=== PATIENT | male | born 1960 | race Caucasian/White ===

== ENCOUNTER 2024-11-17 09:42 | Inpatient (IN) | payer OTHER ==
[~2024-11-17] VITALS: Ht 167.6 cm; Wt 66.9 kg
[~2024-11-17 09:42] MED LIST: Amaryl PO; CEPH500 PO; HYDACE5 PO
[2024-11-17 11:39] LABS: BASOPHILS ABSOLUTE AUTO 0.08 K/mm3 (0.00-0.23); BASOPHILS PERCENT AUTO 0 % (0-2); EOSINOPHILS ABSOLUTE AUTO 0.27 K/mm3 (0.00-0.68); EOSINOPHILS PERCENT AUTO 1 % (0-6); Hematocrit 35.8 % (37.0-53.0); Hemoglobin 11.8 g/dL (13.5-17.5); IMMATURE GRAN ABSOLUTE AUTO 0.18 K/mm3 (0.00-0.10); IMMATURE GRAN PERCENT AUTO 1 % (0-1); LYMPHOCYTES ABSOLUTE AUTO 2.33 K/mm3 (0.84-5.20); LYMPHOCYTES PERCENT AUTO 11 % (21-46); MONOCYTES ABSOLUTE AUTO 1.06 K/mm3 (0.16-1.47); MONOCYTES PERCENT AUTO 5 % (4-13); Mean Corpuscular HGB 28.6 pg (26.0-34.0); Mean Corpuscular Volume 87 fL (80-100); NEUTROPHILS ABSOLUTE AUTO 16.66 K/mm3 (1.96-9.15); NEUTROPHILS PERCENT AUTO 81 % (41-73); Platelet Count 442 K/mm3 (150-400); RDW Coefficient Variation 12.6 % (11.7-14.2); RDW Standard Deviation 40.2 fL (35.1-46.3); Red Blood Cell Count 4.12 M/mm3 (4.30-5.90); White Blood Cell Count 20.58 K/mm3 (4.00-11.30)
[2024-11-17 11:59] LABS: Albumin, Blood 2.6 g/dL (3.4-5.0); Albumin/Globulin Ratio 0.4 (0.8-1.8); Bilirubin, Total 0.5 mg/dL (0.1-1.0); Calcium, Blood 9.6 mg/dL (8.5-10.1); Creatinine, Blood 0.86 mg/dL (0.60-1.20); Globulin, Blood 6.6 g/dL (2.2-4.0); Potassium, Blood 4.6 mmol/L (3.5-5.5); Total Protein, Blood 9.2 g/dL (6.4-8.2)
[2024-11-17] MEDS ORDERED: CefTRIAXone Sodium 2,000 MG in NS 100 ML IV ONE (12:30)
[2024-11-17] MEDS ORDERED: NS 1,000 ML IV SCH ×2 (12:30→14:30)
[2024-11-17] MEDS ORDERED: Vancomycin HCL 2,000 MG in NS 500 ML IV ONE (12:40)
[2024-11-17] MEDS ORDERED: FLU VACC TS2024-25(6MOS UP)/PF 45 MCG/0.5 ML SYRINGE IM SCH (14:30)
[2024-11-17] MEDS ORDERED: Prochlorperazine Edisylate 10 mg Vial IV PRN (14:30)
[2024-11-17 15:19] LABS: Percent Saturation 11.1 % (20.0-50.0)
[2024-11-17] MEDS ORDERED: Acetaminophen 325 MG TABLET PO PRN (15:25)
[2024-11-17] MEDS ORDERED: OxyCODONE HCL 5 MG TAB PO PRN (15:25)
[2024-11-17] MEDS ORDERED: Insulin Human Lispro 100 Units/ML 3ML Syringe SC SCH (16:30)
[2024-11-17] MEDS ORDERED: CeFAZolin Sodium 2,000 MG in NS 100 ML IV SCH (18:00)
--- NOTE | 2024-11-17 20:10 | NUR ---
NEW ADMIT PATIENT ADMITTED RM 354 VIA WHEELCHAIR AND 1P TRANSPORT. TRANSFERRED TO BED WITH MINIMAL ASSISTANCE. PATIENT ARRIVED TO ROOM WITH 1 PERSONAL BELONGINGS BAG AND PHONE. PATIENT HAS PERSONAL WALKER IN ROOM. PATIENT ORIENTED TO ROOM AND THIS RN TO ASSUME CARE.
[2024-11-17 20:21] VITALS: BP 146/77
[2024-11-17] MEDS ORDERED: NOVOLIN 70100 UNIT/4 (20:38)
[2024-11-17] MEDS ORDERED: Insulin Glargine-Yfgn 100 Unit/mL 3 ML SYR SC SCH (21:00)
[2024-11-18 04:14] VITALS: BP 123/71
[2024-11-18 05:15] LABS: BASOPHILS ABSOLUTE AUTO 0.05 K/mm3 (0.00-0.23); BASOPHILS PERCENT AUTO 0 % (0-2); EOSINOPHILS PERCENT AUTO 2 % (0-6); Hematocrit 30.5 % (37.0-53.0); IMMATURE GRAN ABSOLUTE AUTO 0.07 K/mm3 (0.00-0.10); IMMATURE GRAN PERCENT AUTO 1 % (0-1); LYMPHOCYTES ABSOLUTE AUTO 1.68 K/mm3 (0.84-5.20); LYMPHOCYTES PERCENT AUTO 14 % (21-46); MONOCYTES ABSOLUTE AUTO 0.73 K/mm3 (0.16-1.47); MONOCYTES PERCENT AUTO 6 % (4-13); Mean Corpuscular HGB 28.4 pg (26.0-34.0); Mean Corpuscular HGB Conc 32.8 g/dL (31.5-36.5); Mean Corpuscular Volume 87 fL (80-100); Mean Platelet Volume 9.9 fL (9.1-12.4); NEUTROPHILS ABSOLUTE AUTO 9.47 K/mm3 (1.96-9.15); NEUTROPHILS PERCENT AUTO 77 % (41-73); Platelet Count 372 K/mm3 (150-400); RDW Coefficient Variation 12.6 % (11.7-14.2); RDW Standard Deviation 40.1 fL (35.1-46.3); Red Blood Cell Count 3.52 M/mm3 (4.30-5.90)
[2024-11-18 05:42] LABS: Bun/Creatinine Ratio 27.1 (12.0-20.0); Calcium, Blood 9.1 mg/dL (8.5-10.1); Creatinine, Blood 0.63 mg/dL (0.60-1.20); Magnesium, Blood 1.9 mg/dL (1.6-2.4); Potassium, Blood 3.8 mmol/L (3.5-5.5)
[2024-11-18 07:26] VITALS: BP 120/59
[2024-11-18] MEDS ORDERED: Enoxaparin 40 MG/0.4 ML SYR SC SCH (09:00)
[2024-11-18] MEDS ORDERED: Insulin Human Lispro 100 Units/ML 3ML Syringe SC SCH (11:30)
[2024-11-18 14:43] VITALS: BP 122/64
--- NOTE | 2024-11-18 18:33 | NUR ---
PT ALERT AND ORIENTED X4, VSS, RA, NON-TELE. IV ABX CONTINUED FOR CELLULITIS. PT SBA WITH HOME WALKER WHEN OOB. PAIN CONTROLLED WITH PRN OXYCODONE AND TYLENOL. PT PLEASANT AND COOPERATIVE WITH CARE, CALLS APPROPRIATLY, BED IN LOWEST POSITION, CALL LIGHT IN REACH.
[2024-11-18 19:09] VITALS: BP 122/67
[2024-11-18] MEDS ORDERED: Insulin Glargine-Yfgn 100 Unit/mL 3 ML SYR SC SCH (21:00)
[2024-11-19 03:45] VITALS: BP 134/66
--- NOTE | 2024-11-19 03:56 | NUR ---
SHIFT SUMMARY ADMITTED FOR LEFT HEEL CELLULITIS. FULL CODE. IV ANTIB RX ARE SCHEDULED. IV FLUID IS INFUSING. ACHS CBG'S - HIGH SS. ADA DIET. ON RA. A&O X4. INDEPENDENT IN ROOM W/FWW. PAIN AND NAUSEA MEDICATION GIVEN THIS SHIFT. PALLIATIVE CARE IS CONSULTED.
[2024-11-19 05:09] LABS: BASOPHILS ABSOLUTE AUTO 0.06 K/mm3 (0.00-0.23); BASOPHILS PERCENT AUTO 1 % (0-2); EOSINOPHILS ABSOLUTE AUTO 0.26 K/mm3 (0.00-0.68); EOSINOPHILS PERCENT AUTO 2 % (0-6); Hemoglobin 9.9 g/dL (13.5-17.5); IMMATURE GRAN ABSOLUTE AUTO 0.06 K/mm3 (0.00-0.10); IMMATURE GRAN PERCENT AUTO 1 % (0-1); LYMPHOCYTES ABSOLUTE AUTO 1.38 K/mm3 (0.84-5.20); LYMPHOCYTES PERCENT AUTO 11 % (21-46); MONOCYTES ABSOLUTE AUTO 0.76 K/mm3 (0.16-1.47); MONOCYTES PERCENT AUTO 6 % (4-13); Mean Corpuscular HGB 28.4 pg (26.0-34.0); Mean Corpuscular Volume 86 fL (80-100); Mean Platelet Volume 9.9 fL (9.1-12.4); NEUTROPHILS PERCENT AUTO 80 % (41-73); Platelet Count 390 K/mm3 (150-400); RDW Coefficient Variation 12.5 % (11.7-14.2); RDW Standard Deviation 39.7 fL (35.1-46.3); Red Blood Cell Count 3.49 M/mm3 (4.30-5.90); White Blood Cell Count 12.62 K/mm3 (4.00-11.30)
[2024-11-19 05:36] LABS: Bun/Creatinine Ratio 25.6 (12.0-20.0); Calcium, Blood 8.7 mg/dL (8.5-10.1); Creatinine, Blood 0.51 mg/dL (0.60-1.20); Potassium, Blood 3.8 mmol/L (3.5-5.5)
[2024-11-19 07:16] VITALS: BP 130/69
[2024-11-19 08:59] LABS: Percent Saturation 12.6 % (20.0-50.0)
[2024-11-19 15:09] VITALS: BP 115/56
[2024-11-19] MEDS ORDERED: Iron Dextran 975 MG in NS 250 ML IV ONE (15:30)
[2024-11-19] MEDS ORDERED: Iron Dextran 50 MG / ML 2ML Vial IV ONE (15:30)
[2024-11-19 16:54] VITALS: BP 118/54
--- NOTE | 2024-11-19 17:16 | NUR ---
SHIFT SUMMARY: PATIENT A/OX4, CALM, PLEASANT AND COOPERATIVE c CARE. PATIENT MEDICATED FOR PAIN TO HIS L FOOT PER CHUY preston GOOD EFFECT. PATIENT LAB FE LEVEL RESULT WAS 23. PATIENT UPDATED c THIS RESULT AND AGREED TO RECEIVED FE INFUSION. PATIENT ADMINISTERED c TEST DOSE FE DEXTRAN AT 1601; ASSESS AND MONITORED ANY SIDE EFFECTS OR REACTION TO MEDICATION. PATIENT DENIES CP/PRESSURE, SOB, N/V, DIZZINESS AND ITCHINESS. NOTIFIED PHARMACIST, HEATH preston THIS FINDINGS. PER HEATH SHE WILL SENT THE DOSE OF FE DEXTRAN. PATIENT RECEIVED SCHEDULED IV ABX. VITAL SIGNS REVIEWED. PATIENT HAS NO COMPLAINTS OR DENIES NEW CONCERNED THIS SHIFT. PATIENT REFUSED NASAL MRSA SWAB TESTING, DR. LONDONO IS AWARE OF THIS ISSUE. CALL LIGHT IN REACH.
[2024-11-19 19:23] VITALS: BP 126/72
[2024-11-19] MEDS ORDERED: Insulin Glargine-Yfgn 100 Unit/mL 3 ML SYR SC SCH (21:00)
[2024-11-20 04:03] VITALS: BP 112/60
--- NOTE | 2024-11-20 05:12 | NUR ---
SHIFT SUMMARY PATIENT AOX4. PATIENT CALM AND COOPERATIVE WITH CARE. PATIENT IS ABLE TO MAKE HIS NEEDS KNOWN. PATIENT HAS LEFT FOOT WOUND, AND PAIN IS MANAGED WITH REST, REPOSITIONING, AND PRN MEDICATIONS PER MD ORDER. PATIENT IS CONTINENT X2. HE USES A WALKER WITH MINIMAL ASSIST. NO ACUTE EVENTS OVERNIGHT.
[2024-11-20 07:34] VITALS: BP 117/69
[2024-11-20 10:17] LABS: BASOPHILS ABSOLUTE AUTO 0.04 K/mm3 (0.00-0.23); BASOPHILS PERCENT AUTO 0 % (0-2); EOSINOPHILS ABSOLUTE AUTO 0.07 K/mm3 (0.00-0.68); EOSINOPHILS PERCENT AUTO 1 % (0-6); Hemoglobin 9.7 g/dL (13.5-17.5); IMMATURE GRAN ABSOLUTE AUTO 0.04 K/mm3 (0.00-0.10); IMMATURE GRAN PERCENT AUTO 0 % (0-1); LYMPHOCYTES PERCENT AUTO 10 % (21-46); MONOCYTES ABSOLUTE AUTO 0.63 K/mm3 (0.16-1.47); MONOCYTES PERCENT AUTO 5 % (4-13); Mean Corpuscular HGB 28.2 pg (26.0-34.0); Mean Corpuscular HGB Conc 32.3 g/dL (31.5-36.5); Mean Corpuscular Volume 87 fL (80-100); Mean Platelet Volume 9.7 fL (9.1-12.4); NEUTROPHILS ABSOLUTE AUTO 10.92 K/mm3 (1.96-9.15); NEUTROPHILS PERCENT AUTO 84 % (41-73); Platelet Count 425 K/mm3 (150-400); RDW Coefficient Variation 12.5 % (11.7-14.2); RDW Standard Deviation 39.9 fL (35.1-46.3); Red Blood Cell Count 3.44 M/mm3 (4.30-5.90)
[2024-11-20 10:38] LABS: Bun/Creatinine Ratio 18.3 (12.0-20.0); Calcium, Blood 8.9 mg/dL (8.5-10.1); Creatinine, Blood 0.49 mg/dL (0.60-1.20); Potassium, Blood 3.5 mmol/L (3.5-5.5)
--- NOTE | 2024-11-20 17:59 | NUR ---
DAY SHIFT SUMMARY: NO ACUTE EVENTS TO REPORT THIS SHIFT. PT A&O X4; CALM AND COOPERATIVE WITH CARE. MEDICATED FOR L FOOT PAIN PER EMAR. IV ABX CONTINUING. REPORT GIVEN TO TINO ALVARADO.
[2024-11-20 19:13] VITALS: BP 120/89
[2024-11-21 03:01] VITALS: BP 130/67
[2024-11-21 07:09] VITALS: BP 122/71
[2024-11-21] MEDS ORDERED: CEPH500 PO (13:11)
[2024-11-21] MEDS ORDERED: INSULANPEN SC (13:11)
[2024-11-21] MEDS ORDERED: HUMALOG KW100 UNIT/1 SC (13:13)
--- NOTE | 2024-11-21 15:14 | NUR ---
DISCHARGE NOTE PT A&OX4. PT ADMITTED DUE TO SEPSIS WITH L LOWER ANKLE CELLULITIS. PT REPORTS PAIN. PAIN MANAGED PER EMAR W/COMPAZINE DUE COMPLAINT OF NAUSEA. PT INDEPENDEDNT WITH WALKER IN ROOM. PT EATS ADEQUATE. PT LEFT GLASSESS. PATIENT NOTIFIED. PT MEDS FAXED TO PREFERED PHARMACY. PT VOIDS AND EATS ADEQUAE. PT EDUCATED ON DISCHARGE INSTRUCTIONS AND MEDS. PT TAKES MEDS WHOLE WITH WATER. VSS. PT HAS APPOINTMENT WITH PCP AT [facility]. PT RIDE CAME. PT DECLINED ESCORT AND LEFT WITH VISITOR TO PERSONAL VEHICLE. IV WAS D/C.
== END 2024-11-21 15:12 | disposition home or self-care (01) | DRG 872 ==
LOC: ER 09:42 → ERHOLD 14:28 → MEDS 14:28
PROVIDERS: Physician Assistant; ADMIT Internal Medicine
DX: A41.9 Sepsis, unspecified organism (principal); L03.116 Cellulitis of left lower limb; E11.621 Type 2 diabetes mellitus with foot ulcer; L97.529 Non-pressure chronic ulcer of other part of left foot with unspecified severity; D50.9 Iron deficiency anemia, unspecified; E11.65 Type 2 diabetes mellitus with hyperglycemia; S92.332A Displaced fracture of third metatarsal bone, left foot, initial encounter for closed fracture; X58.XXXA Exposure to other specified factors, initial encounter
CPT/HCPCS: 36415; 73620; 73700; 80048; 80053; 82607; 82728; 82746; 82947; 83036; 83540; 83550; 83605; 83735; 85025; 85651; 86140; 87040; 93005; 93010; 93922; 96365; 96375; 99285-25; A9270; J0690; J0696; J0780; J1650; J1750; J1815; J3370; J7030; J7040; J7050

== ENCOUNTER 2024-12-05 12:11 | Emergency (ER) | payer OTHER ==
[~2024-12-05] VITALS: Ht 165.1 cm; Wt 63.5 kg
[~2024-12-05 12:11] MED LIST changes: +HUMALOG KW100 UNIT/1 SC; +INSULANPEN SC; +NOVOLIN 70100 UNIT/4
[2024-12-05 13:31] LABS: BASOPHILS ABSOLUTE AUTO 0.07 K/mm3 (0.00-0.23); BASOPHILS PERCENT AUTO 1 % (0-2); EOSINOPHILS ABSOLUTE AUTO 0.22 K/mm3 (0.00-0.68); EOSINOPHILS PERCENT AUTO 2 % (0-6); Hematocrit 36.1 % (37.0-53.0); Hemoglobin 11.7 g/dL (13.5-17.5); IMMATURE GRAN ABSOLUTE AUTO 0.04 K/mm3 (0.00-0.10); IMMATURE GRAN PERCENT AUTO 0 % (0-1); LYMPHOCYTES ABSOLUTE AUTO 2.16 K/mm3 (0.84-5.20); LYMPHOCYTES PERCENT AUTO 20 % (21-46); MONOCYTES ABSOLUTE AUTO 0.67 K/mm3 (0.16-1.47); MONOCYTES PERCENT AUTO 6 % (4-13); Mean Corpuscular HGB 28.6 pg (26.0-34.0); Mean Corpuscular HGB Conc 32.4 g/dL (31.5-36.5); Mean Corpuscular Volume 88 fL (80-100); Mean Platelet Volume 10.7 fL (9.1-12.4); NEUTROPHILS ABSOLUTE AUTO 7.55 K/mm3 (1.96-9.15); NEUTROPHILS PERCENT AUTO 70 % (41-73); Platelet Count 381 K/mm3 (150-400); RDW Coefficient Variation 13.8 % (11.7-14.2); RDW Standard Deviation 44.4 fL (35.1-46.3); Red Blood Cell Count 4.09 M/mm3 (4.30-5.90); White Blood Cell Count 10.71 K/mm3 (4.00-11.30)
[2024-12-05 14:01] LABS: Albumin, Blood 3.2 g/dL (3.4-5.0); Albumin/Globulin Ratio 0.5 (0.8-1.8); Bilirubin, Total 0.6 mg/dL (0.1-1.0); Bun/Creatinine Ratio 35.4 (12.0-20.0); Calcium, Blood 9.8 mg/dL (8.5-10.1); Creatinine, Blood 0.65 mg/dL (0.60-1.20); Globulin, Blood 5.9 g/dL (2.2-4.0); Potassium, Blood 5.1 mmol/L (3.5-5.5); Total Protein, Blood 9.1 g/dL (6.4-8.2)
[2024-12-05] MEDS ORDERED: IRON SUPPLEMENT (15:49)
[2024-12-05] MEDS ORDERED: ASCO500 (15:49)
[2024-12-05] MEDS ORDERED: Amaryl1 MG (15:49)
[2024-12-05] MEDS ORDERED: CEPH500 PO (16:30)
[2024-12-05] MEDS ORDERED: Cephalexin Monohydrate 500 MG Cap PO ONE (16:30)
== END 2024-12-05 16:50 | disposition home or self-care (01) ==
LOC: ER 12:11
PROVIDERS: Physician Assistant
DX: L02.416 Cutaneous abscess of left lower limb (principal); E11.9 Type 2 diabetes mellitus without complications; Z79.84 Long term (current) use of oral hypoglycemic drugs; Z79.4 Long term (current) use of insulin; Z79.899 Other long term (current) drug therapy
CPT/HCPCS: 10060; 73620; 80053; 85025; 85651; 99283-25; A9270

== ENCOUNTER 2024-12-27 00:36 | Day surgery (SDC) | payer OTHER ==
[~2024-12-27 00:36] MED LIST changes: +ASCO500; +Amaryl1 MG; +IRON SUPPLEMENT
[2024-12-27] MEDS ORDERED: Lidocaine HCl 4% Cream 5 GM ONE (09:55)
== END 2024-12-27 23:00 | disposition home or self-care (01) ==
LOC: WOUND 00:36
DX: E11.621 Type 2 diabetes mellitus with foot ulcer (principal); L97.423 Non-pressure chronic ulcer of left heel and midfoot with necrosis of muscle; E11.65 Type 2 diabetes mellitus with hyperglycemia; E11.42 Type 2 diabetes mellitus with diabetic polyneuropathy
CPT/HCPCS: A6214; A9270

== ENCOUNTER 2025-01-03 00:35 | Day surgery (SDC) | payer OTHER ==
[2025-01-03] MEDS ORDERED: Lidocaine HCl 4% Cream 5 GM ONE (09:45)
== END 2025-01-03 23:00 | disposition home or self-care (01) ==
LOC: WOUND 00:35
DX: E11.621 Type 2 diabetes mellitus with foot ulcer (principal); L97.423 Non-pressure chronic ulcer of left heel and midfoot with necrosis of muscle; L97.523 Non-pressure chronic ulcer of other part of left foot with necrosis of muscle; E11.42 Type 2 diabetes mellitus with diabetic polyneuropathy; E11.65 Type 2 diabetes mellitus with hyperglycemia
CPT/HCPCS: A6214; A9270

== ENCOUNTER 2025-01-11 02:16 | Day surgery (SDC) | payer OTHER ==
[2025-01-11] MEDS ORDERED: Lidocaine HCl 4% Cream 5 GM ONE (12:39)
== END 2025-01-11 23:00 | disposition home or self-care (01) ==
LOC: WOUND 02:16
DX: E11.621 Type 2 diabetes mellitus with foot ulcer (principal); L97.425 Non-pressure chronic ulcer of left heel and midfoot with muscle involvement without evidence of necrosis; L97.525 Non-pressure chronic ulcer of other part of left foot with muscle involvement without evidence of necrosis; E11.42 Type 2 diabetes mellitus with diabetic polyneuropathy; E11.65 Type 2 diabetes mellitus with hyperglycemia; L97.421 Non-pressure chronic ulcer of left heel and midfoot limited to breakdown of skin
CPT/HCPCS: 36415; 73630; 80053; 83036; 85025; 85651; 86140; A9270

== ENCOUNTER 2025-01-17 00:41 | Day surgery (SDC) | payer OTHER ==
[2025-01-17] MEDS ORDERED: Lidocaine HCl 4% Cream 5 GM ONE (09:27)
== END 2025-01-17 23:11 | disposition home or self-care (01) ==
LOC: WOUND 00:41
DX: E11.621 Type 2 diabetes mellitus with foot ulcer (principal); L97.423 Non-pressure chronic ulcer of left heel and midfoot with necrosis of muscle; E11.65 Type 2 diabetes mellitus with hyperglycemia; E11.42 Type 2 diabetes mellitus with diabetic polyneuropathy
CPT/HCPCS: A9270

== ENCOUNTER 2025-01-31 02:23 | Day surgery (SDC) | payer OTHER ==
[2025-01-31] MEDS ORDERED: Lidocaine HCl 4% Cream 5 GM ONE (11:02)
== END 2025-01-31 23:00 | disposition home or self-care (01) ==
LOC: WOUND 02:23
DX: E11.621 Type 2 diabetes mellitus with foot ulcer (principal); L97.425 Non-pressure chronic ulcer of left heel and midfoot with muscle involvement without evidence of necrosis; L97.525 Non-pressure chronic ulcer of other part of left foot with muscle involvement without evidence of necrosis; E11.42 Type 2 diabetes mellitus with diabetic polyneuropathy
CPT/HCPCS: A9270

== ENCOUNTER 2025-01-31 03:55 | Day surgery (SDC) | payer OTHER | END 2025-01-31 23:00 | disposition home or self-care (01) | LOC: HBO 03:55 | DX: E11.621 Type 2 diabetes mellitus with foot ulcer (principal); L97.422 Non-pressure chronic ulcer of left heel and midfoot with fat layer exposed; E11.42 Type 2 diabetes mellitus with diabetic polyneuropathy; L97.425 Non-pressure chronic ulcer of left heel and midfoot with muscle involvement without evidence of necrosis; L97.525 Non-pressure chronic ulcer of other part of left foot with muscle involvement without evidence of necrosis | CPT/HCPCS: 82947; A9270; G0277 ==

== ENCOUNTER 2025-02-01 01:31 | Day surgery (SDC) | payer OTHER | END 2025-02-01 23:00 | disposition home or self-care (01) | LOC: HBO 01:31 | DX: E11.621 Type 2 diabetes mellitus with foot ulcer (principal); L97.523 Non-pressure chronic ulcer of other part of left foot with necrosis of muscle; E11.65 Type 2 diabetes mellitus with hyperglycemia; E11.42 Type 2 diabetes mellitus with diabetic polyneuropathy | CPT/HCPCS: 82947; G0277 ==

== ENCOUNTER 2025-02-02 00:07 | Day surgery (SDC) | payer OTHER | END 2025-02-02 23:00 | disposition home or self-care (01) | LOC: HBO 00:07 | DX: E11.621 Type 2 diabetes mellitus with foot ulcer (principal); L97.523 Non-pressure chronic ulcer of other part of left foot with necrosis of muscle; E11.42 Type 2 diabetes mellitus with diabetic polyneuropathy | CPT/HCPCS: 82947; G0277 ==

== ENCOUNTER 2025-02-03 00:26 | Day surgery (SDC) | payer OTHER | END 2025-02-03 23:00 | disposition home or self-care (01) | LOC: HBO 00:26 | DX: E11.621 Type 2 diabetes mellitus with foot ulcer (principal); E11.65 Type 2 diabetes mellitus with hyperglycemia; E11.42 Type 2 diabetes mellitus with diabetic polyneuropathy; L97.523 Non-pressure chronic ulcer of other part of left foot with necrosis of muscle | CPT/HCPCS: 82947; G0277 ==

== ENCOUNTER 2025-02-06 01:12 | Day surgery (SDC) | payer OTHER | END 2025-02-06 23:00 | disposition home or self-care (01) | LOC: HBO 01:12 | DX: E11.621 Type 2 diabetes mellitus with foot ulcer (principal); L97.523 Non-pressure chronic ulcer of other part of left foot with necrosis of muscle; E11.42 Type 2 diabetes mellitus with diabetic polyneuropathy | CPT/HCPCS: 82947; G0277 ==

== ENCOUNTER 2025-02-07 02:26 | Day surgery (SDC) | payer OTHER | END 2025-02-07 23:00 | disposition home or self-care (01) | LOC: HBO 02:26 | DX: E11.621 Type 2 diabetes mellitus with foot ulcer (principal); L97.422 Non-pressure chronic ulcer of left heel and midfoot with fat layer exposed; E11.42 Type 2 diabetes mellitus with diabetic polyneuropathy | CPT/HCPCS: 82947; A9270; G0277 ==

== ENCOUNTER 2025-02-07 02:36 | Day surgery (SDC) | payer OTHER | END 2025-02-07 23:00 | disposition home or self-care (01) | LOC: WOUND 02:36 | DX: E11.621 Type 2 diabetes mellitus with foot ulcer (principal); L97.425 Non-pressure chronic ulcer of left heel and midfoot with muscle involvement without evidence of necrosis; E11.42 Type 2 diabetes mellitus with diabetic polyneuropathy ==

== ENCOUNTER → 2025-02-08 | Day surgery (SDC) | payer OTHER | LOC: HBO 02:54 | DX: E11.621 Type 2 diabetes mellitus with foot ulcer (principal); L97.422 Non-pressure chronic ulcer of left heel and midfoot with fat layer exposed; E11.42 Type 2 diabetes mellitus with diabetic polyneuropathy | CPT/HCPCS: 82947; G0277 ==

== ENCOUNTER 2025-02-09 04:13 | Day surgery (SDC) | payer OTHER | END 2025-02-09 23:00 | disposition home or self-care (01) | LOC: HBO 04:13 | DX: E11.621 Type 2 diabetes mellitus with foot ulcer (principal); L97.423 Non-pressure chronic ulcer of left heel and midfoot with necrosis of muscle; E11.42 Type 2 diabetes mellitus with diabetic polyneuropathy | CPT/HCPCS: 82947; G0277 ==

== ENCOUNTER 2025-02-10 03:25 | Day surgery (SDC) | payer OTHER | END 2025-02-10 23:00 | disposition home or self-care (01) | LOC: HBO 03:25 | DX: E11.621 Type 2 diabetes mellitus with foot ulcer (principal); E11.65 Type 2 diabetes mellitus with hyperglycemia; E11.42 Type 2 diabetes mellitus with diabetic polyneuropathy; L97.523 Non-pressure chronic ulcer of other part of left foot with necrosis of muscle | CPT/HCPCS: 82947; G0277 ==

== ENCOUNTER 2025-02-13 01:35 | Day surgery (SDC) | payer OTHER | END 2025-02-13 23:00 | disposition home or self-care (01) | LOC: HBO 01:35 | DX: E11.621 Type 2 diabetes mellitus with foot ulcer (principal); L97.523 Non-pressure chronic ulcer of other part of left foot with necrosis of muscle; E11.65 Type 2 diabetes mellitus with hyperglycemia; E11.42 Type 2 diabetes mellitus with diabetic polyneuropathy | CPT/HCPCS: 82947; G0277 ==

== ENCOUNTER 2025-02-14 04:17 | Day surgery (SDC) | payer OTHER | END 2025-02-14 22:59 | disposition home or self-care (01) | LOC: HBO 04:17 | DX: E11.621 Type 2 diabetes mellitus with foot ulcer (principal); L97.523 Non-pressure chronic ulcer of other part of left foot with necrosis of muscle; E11.42 Type 2 diabetes mellitus with diabetic polyneuropathy; L97.423 Non-pressure chronic ulcer of left heel and midfoot with necrosis of muscle; E11.65 Type 2 diabetes mellitus with hyperglycemia | CPT/HCPCS: 82947; G0277; G0463 ==

== ENCOUNTER 2025-02-15 01:49 | Day surgery (SDC) | payer OTHER | END 2025-02-15 23:00 | disposition home or self-care (01) | LOC: HBO 01:49 | DX: E11.621 Type 2 diabetes mellitus with foot ulcer (principal); L97.523 Non-pressure chronic ulcer of other part of left foot with necrosis of muscle; E11.42 Type 2 diabetes mellitus with diabetic polyneuropathy | CPT/HCPCS: 82947; G0277 ==

== ENCOUNTER 2025-02-17 02:35 | Day surgery (SDC) | payer OTHER | END 2025-02-17 23:00 | disposition home or self-care (01) | LOC: HBO 02:35 | DX: E11.621 Type 2 diabetes mellitus with foot ulcer (principal); L97.523 Non-pressure chronic ulcer of other part of left foot with necrosis of muscle; E11.42 Type 2 diabetes mellitus with diabetic polyneuropathy | CPT/HCPCS: 82947; G0277 ==

== ENCOUNTER → 2025-02-20 | Day surgery (SDC) | payer OTHER | LOC: HBO 13:04 | DX: E11.621 Type 2 diabetes mellitus with foot ulcer (principal); L97.523 Non-pressure chronic ulcer of other part of left foot with necrosis of muscle; E11.65 Type 2 diabetes mellitus with hyperglycemia; E11.42 Type 2 diabetes mellitus with diabetic polyneuropathy | CPT/HCPCS: 82947; G0277 ==

== ENCOUNTER 2025-02-21 04:33 | Day surgery (SDC) | payer OTHER | END 2025-02-21 23:00 | disposition home or self-care (01) | LOC: HBO 04:33 | DX: E11.621 Type 2 diabetes mellitus with foot ulcer (principal); L97.523 Non-pressure chronic ulcer of other part of left foot with necrosis of muscle; E11.65 Type 2 diabetes mellitus with hyperglycemia; E11.42 Type 2 diabetes mellitus with diabetic polyneuropathy | CPT/HCPCS: 82947; G0277 ==

== ENCOUNTER → 2025-02-21 | Day surgery (SDC) | payer OTHER | LOC: WOUND 04:39 | DX: E11.621 Type 2 diabetes mellitus with foot ulcer (principal); L97.523 Non-pressure chronic ulcer of other part of left foot with necrosis of muscle; E11.65 Type 2 diabetes mellitus with hyperglycemia; E11.42 Type 2 diabetes mellitus with diabetic polyneuropathy ==

== ENCOUNTER → 2025-02-22 | Day surgery (SDC) | payer OTHER | LOC: HBO 01:07 | DX: E11.621 Type 2 diabetes mellitus with foot ulcer (principal); L97.523 Non-pressure chronic ulcer of other part of left foot with necrosis of muscle; E11.65 Type 2 diabetes mellitus with hyperglycemia; E11.42 Type 2 diabetes mellitus with diabetic polyneuropathy | CPT/HCPCS: 82947; G0277 ==

== ENCOUNTER 2025-02-23 02:03 | Day surgery (SDC) | payer OTHER | END 2025-02-23 23:00 | disposition home or self-care (01) | LOC: HBO 02:03 | DX: E11.621 Type 2 diabetes mellitus with foot ulcer (principal); L97.523 Non-pressure chronic ulcer of other part of left foot with necrosis of muscle; E11.65 Type 2 diabetes mellitus with hyperglycemia; E11.42 Type 2 diabetes mellitus with diabetic polyneuropathy | CPT/HCPCS: 82947; G0277 ==

== ENCOUNTER 2025-02-24 02:49 | Day surgery (SDC) | payer OTHER | END 2025-02-24 23:00 | disposition home or self-care (01) | LOC: HBO 02:49 | DX: E11.621 Type 2 diabetes mellitus with foot ulcer (principal); L97.523 Non-pressure chronic ulcer of other part of left foot with necrosis of muscle; E11.42 Type 2 diabetes mellitus with diabetic polyneuropathy | CPT/HCPCS: 82947; G0277 ==

== ENCOUNTER 2025-02-27 08:16 | Day surgery (SDC) | payer OTHER | END 2025-02-27 23:00 | disposition home or self-care (01) | LOC: HBO 08:16 | DX: E11.621 Type 2 diabetes mellitus with foot ulcer (principal); L97.523 Non-pressure chronic ulcer of other part of left foot with necrosis of muscle; E11.42 Type 2 diabetes mellitus with diabetic polyneuropathy | CPT/HCPCS: 82947; G0277 ==

== ENCOUNTER 2025-02-28 08:00 | Day surgery (SDC) | payer OTHER | END 2025-03-03 23:00 | disposition home or self-care (01) | LOC: HBO 08:00 | DX: E11.621 Type 2 diabetes mellitus with foot ulcer (principal); L97.523 Non-pressure chronic ulcer of other part of left foot with necrosis of muscle; E11.65 Type 2 diabetes mellitus with hyperglycemia; E11.42 Type 2 diabetes mellitus with diabetic polyneuropathy | CPT/HCPCS: 82947; G0277 ==

== ENCOUNTER → 2025-02-28 | Day surgery (SDC) | payer OTHER | LOC: WOUND 03:36 | DX: E11.621 Type 2 diabetes mellitus with foot ulcer (principal); L97.523 Non-pressure chronic ulcer of other part of left foot with necrosis of muscle; E11.65 Type 2 diabetes mellitus with hyperglycemia; E11.42 Type 2 diabetes mellitus with diabetic polyneuropathy | CPT/HCPCS: G0463 ==

== ENCOUNTER 2025-03-01 04:46 | Day surgery (SDC) | payer OTHER | END 2025-03-01 23:00 | disposition home or self-care (01) | LOC: HBO 04:46 | DX: E11.621 Type 2 diabetes mellitus with foot ulcer (principal); L97.523 Non-pressure chronic ulcer of other part of left foot with necrosis of muscle; E11.65 Type 2 diabetes mellitus with hyperglycemia; E11.42 Type 2 diabetes mellitus with diabetic polyneuropathy | CPT/HCPCS: 82947; G0277 ==

== ENCOUNTER 2025-03-02 01:33 | Day surgery (SDC) | payer OTHER | END 2025-03-02 23:00 | disposition home or self-care (01) | LOC: HBO 01:33 | DX: E11.621 Type 2 diabetes mellitus with foot ulcer (principal); L97.523 Non-pressure chronic ulcer of other part of left foot with necrosis of muscle; E11.65 Type 2 diabetes mellitus with hyperglycemia; E11.42 Type 2 diabetes mellitus with diabetic polyneuropathy | CPT/HCPCS: 82947; G0277 ==

== ENCOUNTER 2025-03-06 05:42 | Day surgery (SDC) | payer OTHER | END 2025-03-06 23:00 | disposition home or self-care (01) | LOC: HBO 05:42 | DX: E11.621 Type 2 diabetes mellitus with foot ulcer (principal); L97.523 Non-pressure chronic ulcer of other part of left foot with necrosis of muscle; E11.42 Type 2 diabetes mellitus with diabetic polyneuropathy | CPT/HCPCS: 82947; G0277 ==

== ENCOUNTER 2025-03-07 02:18 | Day surgery (SDC) | payer OTHER | END 2025-03-07 23:44 | disposition home or self-care (01) | LOC: HBO 02:18 | DX: E11.621 Type 2 diabetes mellitus with foot ulcer (principal); L97.523 Non-pressure chronic ulcer of other part of left foot with necrosis of muscle; L97.425 Non-pressure chronic ulcer of left heel and midfoot with muscle involvement without evidence of necrosis; E11.65 Type 2 diabetes mellitus with hyperglycemia; E11.42 Type 2 diabetes mellitus with diabetic polyneuropathy | CPT/HCPCS: 82947; A9270; G0277; G0463 ==

== ENCOUNTER 2025-03-07 02:29 | Day surgery (SDC) | payer OTHER ==
[2025-03-07] MEDS ORDERED: Lidocaine HCl 4% Cream 5 GM ONE (10:21)
== END 2025-03-07 23:44 | disposition home or self-care (01) ==
LOC: WOUND 02:29
DX: E11.621 Type 2 diabetes mellitus with foot ulcer (principal); L97.425 Non-pressure chronic ulcer of left heel and midfoot with muscle involvement without evidence of necrosis; E11.42 Type 2 diabetes mellitus with diabetic polyneuropathy
CPT/HCPCS: A9270

== ENCOUNTER 2025-03-08 02:14 | Day surgery (SDC) | payer OTHER | END 2025-03-08 23:00 | disposition home or self-care (01) | LOC: HBO 02:14 | DX: E11.621 Type 2 diabetes mellitus with foot ulcer (principal); L97.523 Non-pressure chronic ulcer of other part of left foot with necrosis of muscle; E11.65 Type 2 diabetes mellitus with hyperglycemia; E11.42 Type 2 diabetes mellitus with diabetic polyneuropathy | CPT/HCPCS: 82947; G0277 ==

== ENCOUNTER 2025-03-09 01:10 | Day surgery (SDC) | payer OTHER | END 2025-03-09 23:00 | disposition home or self-care (01) | LOC: HBO 01:10 | DX: E11.621 Type 2 diabetes mellitus with foot ulcer (principal); L97.523 Non-pressure chronic ulcer of other part of left foot with necrosis of muscle; E11.65 Type 2 diabetes mellitus with hyperglycemia; E11.42 Type 2 diabetes mellitus with diabetic polyneuropathy | CPT/HCPCS: 82947; G0277 ==

== ENCOUNTER 2025-03-10 05:15 | Day surgery (SDC) | payer OTHER | END 2025-03-10 23:00 | disposition home or self-care (01) | LOC: HBO 05:15 | DX: E11.621 Type 2 diabetes mellitus with foot ulcer (principal); L97.523 Non-pressure chronic ulcer of other part of left foot with necrosis of muscle; E11.65 Type 2 diabetes mellitus with hyperglycemia; E11.42 Type 2 diabetes mellitus with diabetic polyneuropathy | CPT/HCPCS: 82947; G0277 ==

== ENCOUNTER 2025-03-13 03:28 | Day surgery (SDC) | payer OTHER | END 2025-03-13 23:29 | disposition home or self-care (01) | LOC: HBO 03:28 | DX: E11.621 Type 2 diabetes mellitus with foot ulcer (principal); L97.523 Non-pressure chronic ulcer of other part of left foot with necrosis of muscle; E11.42 Type 2 diabetes mellitus with diabetic polyneuropathy | CPT/HCPCS: 82947; G0277 ==

== ENCOUNTER 2025-03-14 02:06 | Day surgery (SDC) | payer OTHER | END 2025-03-14 23:50 | disposition home or self-care (01) | LOC: HBO 02:06 | DX: E11.621 Type 2 diabetes mellitus with foot ulcer (principal); L97.523 Non-pressure chronic ulcer of other part of left foot with necrosis of muscle; E11.65 Type 2 diabetes mellitus with hyperglycemia; E11.42 Type 2 diabetes mellitus with diabetic polyneuropathy | CPT/HCPCS: 82947; G0277; G0463 ==

== ENCOUNTER 2025-03-15 03:03 | Day surgery (SDC) | payer OTHER | END 2025-03-15 23:00 | disposition home or self-care (01) | LOC: HBO 03:03 | DX: E11.621 Type 2 diabetes mellitus with foot ulcer (principal); L97.523 Non-pressure chronic ulcer of other part of left foot with necrosis of muscle; E11.65 Type 2 diabetes mellitus with hyperglycemia; E11.42 Type 2 diabetes mellitus with diabetic polyneuropathy | CPT/HCPCS: 82947; G0277 ==

== ENCOUNTER 2025-03-16 01:59 | Day surgery (SDC) | payer OTHER | END 2025-03-16 23:00 | disposition home or self-care (01) | LOC: HBO 01:59 | DX: E11.621 Type 2 diabetes mellitus with foot ulcer (principal); L97.523 Non-pressure chronic ulcer of other part of left foot with necrosis of muscle; E11.42 Type 2 diabetes mellitus with diabetic polyneuropathy | CPT/HCPCS: 82947; G0277 ==

== ENCOUNTER 2025-03-17 04:22 | Day surgery (SDC) | payer OTHER | END 2025-03-17 23:00 | disposition home or self-care (01) | LOC: HBO 04:22 | DX: E11.621 Type 2 diabetes mellitus with foot ulcer (principal); L97.523 Non-pressure chronic ulcer of other part of left foot with necrosis of muscle; E11.42 Type 2 diabetes mellitus with diabetic polyneuropathy | CPT/HCPCS: 82947; G0277 ==

== ENCOUNTER 2025-03-20 00:58 | Day surgery (SDC) | payer OTHER | END 2025-03-20 23:33 | disposition home or self-care (01) | LOC: HBO 00:58 | DX: E11.621 Type 2 diabetes mellitus with foot ulcer (principal); L97.523 Non-pressure chronic ulcer of other part of left foot with necrosis of muscle; E11.42 Type 2 diabetes mellitus with diabetic polyneuropathy | CPT/HCPCS: 82947; G0277 ==

== ENCOUNTER 2025-03-21 00:47 | Day surgery (SDC) | payer OTHER | END 2025-03-21 23:00 | disposition home or self-care (01) | LOC: HBO 00:47 | DX: E11.621 Type 2 diabetes mellitus with foot ulcer (principal); L97.523 Non-pressure chronic ulcer of other part of left foot with necrosis of muscle; E11.65 Type 2 diabetes mellitus with hyperglycemia; E11.42 Type 2 diabetes mellitus with diabetic polyneuropathy | CPT/HCPCS: 82947; G0277 ==

== ENCOUNTER 2025-03-21 00:57 | Day surgery (SDC) | payer OTHER | END 2025-03-21 23:00 | LOC: WOUND 00:57 | DX: E11.621 Type 2 diabetes mellitus with foot ulcer (principal); L97.523 Non-pressure chronic ulcer of other part of left foot with necrosis of muscle; E11.42 Type 2 diabetes mellitus with diabetic polyneuropathy | CPT/HCPCS: G0463 ==

== ENCOUNTER 2025-03-22 05:35 | Day surgery (SDC) | payer OTHER | END 2025-03-22 23:00 | LOC: HBO 05:35 | DX: E11.621 Type 2 diabetes mellitus with foot ulcer (principal); L97.523 Non-pressure chronic ulcer of other part of left foot with necrosis of muscle; E11.42 Type 2 diabetes mellitus with diabetic polyneuropathy | CPT/HCPCS: 82947; G0277 ==

== ENCOUNTER 2025-03-23 01:14 | Day surgery (SDC) | payer OTHER | END 2025-03-23 23:00 | disposition home or self-care (01) | LOC: HBO | DX: E11.621 Type 2 diabetes mellitus with foot ulcer (principal); L97.523 Non-pressure chronic ulcer of other part of left foot with necrosis of muscle; E11.65 Type 2 diabetes mellitus with hyperglycemia; E11.42 Type 2 diabetes mellitus with diabetic polyneuropathy; Z79.4 Long term (current) use of insulin; Z79.84 Long term (current) use of oral hypoglycemic drugs | CPT/HCPCS: 82947; G0277 ==

== ENCOUNTER 2025-04-03 03:18 | Day surgery (SDC) | payer OTHER | END 2025-04-03 23:07 | disposition home or self-care (01) | LOC: HBO 03:18 | DX: E11.621 Type 2 diabetes mellitus with foot ulcer (principal); L97.522 Non-pressure chronic ulcer of other part of left foot with fat layer exposed; E11.65 Type 2 diabetes mellitus with hyperglycemia; E11.42 Type 2 diabetes mellitus with diabetic polyneuropathy | CPT/HCPCS: 82947; G0277 ==

== ENCOUNTER 2025-04-04 04:35 | Day surgery (SDC) | payer OTHER | END 2025-04-04 23:08 | disposition home or self-care (01) | LOC: HBO 04:35 | DX: E11.621 Type 2 diabetes mellitus with foot ulcer (principal); L97.523 Non-pressure chronic ulcer of other part of left foot with necrosis of muscle; E11.65 Type 2 diabetes mellitus with hyperglycemia; E11.42 Type 2 diabetes mellitus with diabetic polyneuropathy; L97.525 Non-pressure chronic ulcer of other part of left foot with muscle involvement without evidence of necrosis | CPT/HCPCS: 82947; G0277; G0463 ==

== ENCOUNTER 2025-04-07 01:26 | Day surgery (SDC) | payer OTHER | END 2025-04-07 23:00 | disposition home or self-care (01) | LOC: HBO 01:26 | DX: E11.621 Type 2 diabetes mellitus with foot ulcer (principal); L97.422 Non-pressure chronic ulcer of left heel and midfoot with fat layer exposed; E11.65 Type 2 diabetes mellitus with hyperglycemia; E11.42 Type 2 diabetes mellitus with diabetic polyneuropathy | CPT/HCPCS: 82947; G0277 ==

== ENCOUNTER 2025-04-10 03:15 | Day surgery (SDC) | payer OTHER | END 2025-04-10 23:56 | disposition home or self-care (01) | LOC: HBO 03:15 | DX: E11.621 Type 2 diabetes mellitus with foot ulcer (principal); L97.523 Non-pressure chronic ulcer of other part of left foot with necrosis of muscle; E11.42 Type 2 diabetes mellitus with diabetic polyneuropathy | CPT/HCPCS: 82947; G0277 ==

== ENCOUNTER 2025-04-20 03:16 | Day surgery (SDC) | payer OTHER | END 2025-04-20 23:00 | disposition home or self-care (01) | LOC: HBO 03:16 | DX: E11.621 Type 2 diabetes mellitus with foot ulcer (principal); L97.523 Non-pressure chronic ulcer of other part of left foot with necrosis of muscle; E11.65 Type 2 diabetes mellitus with hyperglycemia; E11.42 Type 2 diabetes mellitus with diabetic polyneuropathy | CPT/HCPCS: 82947; G0277 ==

== ENCOUNTER 2025-05-01 08:00 | Day surgery (SDC) | payer OTHER | END 2025-05-01 23:00 | disposition home or self-care (01) | LOC: HBO 08:00 | DX: E11.621 Type 2 diabetes mellitus with foot ulcer (principal); L97.523 Non-pressure chronic ulcer of other part of left foot with necrosis of muscle; E11.65 Type 2 diabetes mellitus with hyperglycemia; E11.42 Type 2 diabetes mellitus with diabetic polyneuropathy | CPT/HCPCS: 82947; G0277 ==

== ENCOUNTER 2025-05-02 02:17 | Day surgery (SDC) | payer OTHER | END 2025-05-02 23:00 | disposition home or self-care (01) | LOC: HBO 02:17 | DX: E11.621 Type 2 diabetes mellitus with foot ulcer (principal); L97.523 Non-pressure chronic ulcer of other part of left foot with necrosis of muscle; E11.65 Type 2 diabetes mellitus with hyperglycemia; E11.42 Type 2 diabetes mellitus with diabetic polyneuropathy; L97.425 Non-pressure chronic ulcer of left heel and midfoot with muscle involvement without evidence of necrosis | CPT/HCPCS: 82947; A9270; G0277 ==

== ENCOUNTER 2025-05-02 02:29 | Day surgery (SDC) | payer OTHER ==
[2025-05-02] MEDS ORDERED: Lidocaine HCl 4% Cream 5 GM ONE (10:36)
== END 2025-05-02 23:00 | disposition home or self-care (01) ==
LOC: WOUND 02:29
DX: E11.621 Type 2 diabetes mellitus with foot ulcer (principal); L97.425 Non-pressure chronic ulcer of left heel and midfoot with muscle involvement without evidence of necrosis; E11.65 Type 2 diabetes mellitus with hyperglycemia; E11.42 Type 2 diabetes mellitus with diabetic polyneuropathy
CPT/HCPCS: A9270

== ENCOUNTER 2025-05-08 04:14 | Day surgery (SDC) | payer OTHER | END 2025-05-08 23:00 | disposition home or self-care (01) | LOC: HBO 04:14 | DX: E11.621 Type 2 diabetes mellitus with foot ulcer (principal); L97.522 Non-pressure chronic ulcer of other part of left foot with fat layer exposed; E11.65 Type 2 diabetes mellitus with hyperglycemia; E11.42 Type 2 diabetes mellitus with diabetic polyneuropathy | CPT/HCPCS: 82947; G0277 ==

== ENCOUNTER 2025-05-09 04:04 | Day surgery (SDC) | payer OTHER | END 2025-05-09 22:00 | disposition home or self-care (01) | LOC: HBO 04:04 | DX: E11.621 Type 2 diabetes mellitus with foot ulcer (principal); L97.422 Non-pressure chronic ulcer of left heel and midfoot with fat layer exposed; E11.65 Type 2 diabetes mellitus with hyperglycemia; E11.42 Type 2 diabetes mellitus with diabetic polyneuropathy; L97.425 Non-pressure chronic ulcer of left heel and midfoot with muscle involvement without evidence of necrosis | CPT/HCPCS: 82947; A9270; G0277; G0463 ==

== ENCOUNTER 2025-05-09 04:25 | Day surgery (SDC) | payer OTHER ==
[2025-05-09] MEDS ORDERED: Lidocaine HCl 4% Cream 5 GM ONE (10:26)
== END 2025-05-09 22:00 | disposition home or self-care (01) ==
LOC: WOUND 04:25
DX: E11.621 Type 2 diabetes mellitus with foot ulcer (principal); L97.425 Non-pressure chronic ulcer of left heel and midfoot with muscle involvement without evidence of necrosis; E11.65 Type 2 diabetes mellitus with hyperglycemia; E11.42 Type 2 diabetes mellitus with diabetic polyneuropathy
CPT/HCPCS: A9270; G0463

== ENCOUNTER 2025-05-10 01:44 | Day surgery (SDC) | payer OTHER | END 2025-05-10 23:00 | disposition home or self-care (01) | LOC: HBO 01:44 | DX: E11.621 Type 2 diabetes mellitus with foot ulcer (principal); L97.422 Non-pressure chronic ulcer of left heel and midfoot with fat layer exposed; E11.65 Type 2 diabetes mellitus with hyperglycemia; E11.42 Type 2 diabetes mellitus with diabetic polyneuropathy | CPT/HCPCS: 82947; G0277 ==

== ENCOUNTER 2025-05-11 01:38 | Day surgery (SDC) | payer OTHER | END 2025-05-11 23:00 | disposition home or self-care (01) | LOC: HBO 01:38 | DX: E11.621 Type 2 diabetes mellitus with foot ulcer (principal); L97.523 Non-pressure chronic ulcer of other part of left foot with necrosis of muscle; E11.65 Type 2 diabetes mellitus with hyperglycemia; E11.42 Type 2 diabetes mellitus with diabetic polyneuropathy | CPT/HCPCS: 82947; G0277 ==

== ENCOUNTER 2025-05-12 01:35 | Day surgery (SDC) | payer OTHER | END 2025-05-12 23:00 | disposition home or self-care (01) | LOC: HBO 01:35 | DX: E11.621 Type 2 diabetes mellitus with foot ulcer (principal); L97.523 Non-pressure chronic ulcer of other part of left foot with necrosis of muscle; E11.65 Type 2 diabetes mellitus with hyperglycemia; E11.42 Type 2 diabetes mellitus with diabetic polyneuropathy | CPT/HCPCS: 82947; G0277 ==

== ENCOUNTER 2025-05-16 00:36 | Day surgery (SDC) | payer OTHER | END 2025-05-16 23:00 | disposition home or self-care (01) | LOC: HBO 00:36 | DX: E11.621 Type 2 diabetes mellitus with foot ulcer (principal); L97.422 Non-pressure chronic ulcer of left heel and midfoot with fat layer exposed; E11.65 Type 2 diabetes mellitus with hyperglycemia; E11.42 Type 2 diabetes mellitus with diabetic polyneuropathy | CPT/HCPCS: 82947; G0277 ==

== ENCOUNTER 2025-05-17 03:13 | Day surgery (SDC) | payer OTHER | END 2025-05-17 23:00 | disposition home or self-care (01) | LOC: HBO 03:13 | DX: E11.621 Type 2 diabetes mellitus with foot ulcer (principal); L97.422 Non-pressure chronic ulcer of left heel and midfoot with fat layer exposed; E11.65 Type 2 diabetes mellitus with hyperglycemia; E11.42 Type 2 diabetes mellitus with diabetic polyneuropathy | CPT/HCPCS: 82947; G0277 ==

== ENCOUNTER 2025-05-18 02:06 | Day surgery (SDC) | payer OTHER | END 2025-05-18 23:00 | LOC: HBO 02:06 | DX: E11.621 Type 2 diabetes mellitus with foot ulcer (principal); L97.425 Non-pressure chronic ulcer of left heel and midfoot with muscle involvement without evidence of necrosis; E11.65 Type 2 diabetes mellitus with hyperglycemia; E11.42 Type 2 diabetes mellitus with diabetic polyneuropathy | CPT/HCPCS: 82947; G0277 ==

== ENCOUNTER 2025-05-23 00:35 | Day surgery (SDC) | payer OTHER | END 2025-05-23 23:38 | disposition home or self-care (01) | LOC: HBO 00:35 | DX: E11.621 Type 2 diabetes mellitus with foot ulcer (principal); L97.422 Non-pressure chronic ulcer of left heel and midfoot with fat layer exposed; E11.65 Type 2 diabetes mellitus with hyperglycemia; E11.42 Type 2 diabetes mellitus with diabetic polyneuropathy | CPT/HCPCS: 82947; A9270; G0277 ==

== ENCOUNTER 2025-05-23 00:44 | Day surgery (SDC) | payer OTHER ==
[2025-05-23] MEDS ORDERED: Lidocaine HCl 4% Cream 5 GM ONE (10:20)
== END 2025-05-23 23:38 | disposition home or self-care (01) ==
LOC: WOUND 00:44
DX: E11.621 Type 2 diabetes mellitus with foot ulcer (principal); L97.422 Non-pressure chronic ulcer of left heel and midfoot with fat layer exposed; E11.65 Type 2 diabetes mellitus with hyperglycemia; E11.42 Type 2 diabetes mellitus with diabetic polyneuropathy
CPT/HCPCS: A9270

== ENCOUNTER 2025-05-24 03:19 | Day surgery (SDC) | payer OTHER | END 2025-05-24 23:00 | disposition home or self-care (01) | LOC: WOUND 03:19 → HBO 03:19 → WOUND 12:32 | DX: E11.621 Type 2 diabetes mellitus with foot ulcer (principal); L97.523 Non-pressure chronic ulcer of other part of left foot with necrosis of muscle; E11.65 Type 2 diabetes mellitus with hyperglycemia; E11.42 Type 2 diabetes mellitus with diabetic polyneuropathy | CPT/HCPCS: 82947 ==

== ENCOUNTER 2025-05-25 03:21 | Day surgery (SDC) | payer OTHER | END 2025-05-25 23:00 | disposition home or self-care (01) | LOC: HBO 03:21 | DX: E11.621 Type 2 diabetes mellitus with foot ulcer (principal); L97.423 Non-pressure chronic ulcer of left heel and midfoot with necrosis of muscle; E11.65 Type 2 diabetes mellitus with hyperglycemia; E11.42 Type 2 diabetes mellitus with diabetic polyneuropathy | CPT/HCPCS: 82947; G0277 ==

== ENCOUNTER 2025-05-26 03:08 | Day surgery (SDC) | payer OTHER | END 2025-05-26 23:00 | disposition home or self-care (01) | LOC: HBO 03:08 | DX: E11.621 Type 2 diabetes mellitus with foot ulcer (principal); L97.422 Non-pressure chronic ulcer of left heel and midfoot with fat layer exposed; E11.65 Type 2 diabetes mellitus with hyperglycemia; E11.42 Type 2 diabetes mellitus with diabetic polyneuropathy | CPT/HCPCS: 82947; G0277 ==

== ENCOUNTER 2025-05-29 00:37 | Day surgery (SDC) | payer OTHER | END 2025-05-29 23:00 | disposition home or self-care (01) | LOC: HBO 00:37 → WOUND 10:14 → HBO 10:48 | DX: E11.621 Type 2 diabetes mellitus with foot ulcer (principal); L97.523 Non-pressure chronic ulcer of other part of left foot with necrosis of muscle; E11.65 Type 2 diabetes mellitus with hyperglycemia; E11.42 Type 2 diabetes mellitus with diabetic polyneuropathy | CPT/HCPCS: 82947; G0277 ==

== ENCOUNTER 2025-05-30 01:13 | Day surgery (SDC) | payer OTHER ==
[2025-05-30] MEDS ORDERED: Lidocaine HCl 4% Cream 5 GM ONE (10:36)
== END 2025-05-30 23:00 | disposition home or self-care (01) ==
LOC: WOUND 01:13
DX: E11.621 Type 2 diabetes mellitus with foot ulcer (principal); L97.422 Non-pressure chronic ulcer of left heel and midfoot with fat layer exposed; E11.65 Type 2 diabetes mellitus with hyperglycemia; E11.42 Type 2 diabetes mellitus with diabetic polyneuropathy
CPT/HCPCS: A9270

== ENCOUNTER 2025-05-30 01:22 | Day surgery (SDC) | payer OTHER | END 2025-05-30 23:00 | disposition home or self-care (01) | LOC: HBO 01:22 | DX: E11.621 Type 2 diabetes mellitus with foot ulcer (principal); L97.422 Non-pressure chronic ulcer of left heel and midfoot with fat layer exposed; E11.65 Type 2 diabetes mellitus with hyperglycemia; E11.42 Type 2 diabetes mellitus with diabetic polyneuropathy | CPT/HCPCS: 82947; A9270; G0277 ==

== ENCOUNTER 2025-05-31 03:24 | Day surgery (SDC) | payer OTHER | END 2025-05-31 23:00 | disposition home or self-care (01) | LOC: HBO 03:24 | DX: E11.621 Type 2 diabetes mellitus with foot ulcer (principal); L97.422 Non-pressure chronic ulcer of left heel and midfoot with fat layer exposed; E11.65 Type 2 diabetes mellitus with hyperglycemia; E11.42 Type 2 diabetes mellitus with diabetic polyneuropathy | CPT/HCPCS: 82947; G0277 ==

== ENCOUNTER 2025-06-01 03:34 | Day surgery (SDC) | payer OTHER | END 2025-06-01 23:00 | disposition home or self-care (01) | LOC: HBO 03:34 | DX: E11.621 Type 2 diabetes mellitus with foot ulcer (principal); L97.523 Non-pressure chronic ulcer of other part of left foot with necrosis of muscle; E11.65 Type 2 diabetes mellitus with hyperglycemia; E11.42 Type 2 diabetes mellitus with diabetic polyneuropathy | CPT/HCPCS: 82947; G0277 ==

== ENCOUNTER 2025-06-02 03:57 | Day surgery (SDC) | payer OTHER | END 2025-06-02 23:00 | disposition home or self-care (01) | LOC: HBO 03:57 | DX: E11.621 Type 2 diabetes mellitus with foot ulcer (principal); L97.422 Non-pressure chronic ulcer of left heel and midfoot with fat layer exposed; E11.42 Type 2 diabetes mellitus with diabetic polyneuropathy | CPT/HCPCS: 82947; G0277 ==

== ENCOUNTER 2025-06-05 00:42 | Day surgery (SDC) | payer OTHER | END 2025-06-05 23:00 | disposition home or self-care (01) | LOC: HBO 00:42 | DX: E11.621 Type 2 diabetes mellitus with foot ulcer (principal); L97.422 Non-pressure chronic ulcer of left heel and midfoot with fat layer exposed; E11.65 Type 2 diabetes mellitus with hyperglycemia; E11.42 Type 2 diabetes mellitus with diabetic polyneuropathy | CPT/HCPCS: 82947; G0277 ==

== ENCOUNTER 2025-06-12 00:29 | Day surgery (SDC) | payer OTHER | END 2025-06-12 23:00 | disposition home or self-care (01) | LOC: HBO 00:29 | DX: E11.621 Type 2 diabetes mellitus with foot ulcer (principal); L97.522 Non-pressure chronic ulcer of other part of left foot with fat layer exposed; E11.42 Type 2 diabetes mellitus with diabetic polyneuropathy | CPT/HCPCS: 82947; G0277 ==

== ENCOUNTER 2025-06-13 04:19 | Day surgery (SDC) | payer OTHER | END 2025-06-13 23:00 | disposition home or self-care (01) | LOC: HBO 04:19 | DX: E11.621 Type 2 diabetes mellitus with foot ulcer (principal); L97.522 Non-pressure chronic ulcer of other part of left foot with fat layer exposed; E11.42 Type 2 diabetes mellitus with diabetic polyneuropathy; E11.65 Type 2 diabetes mellitus with hyperglycemia | CPT/HCPCS: 82947; G0277 ==

== ENCOUNTER 2025-06-13 04:27 | Day surgery (SDC) | payer OTHER ==
[2025-06-13] MEDS ORDERED: Lidocaine HCl 4% Cream 5 GM ONE (10:24)
== END 2025-06-13 23:00 | disposition home or self-care (01) ==
LOC: WOUND 04:27
DX: E11.621 Type 2 diabetes mellitus with foot ulcer (principal); L97.425 Non-pressure chronic ulcer of left heel and midfoot with muscle involvement without evidence of necrosis; E11.42 Type 2 diabetes mellitus with diabetic polyneuropathy; E11.65 Type 2 diabetes mellitus with hyperglycemia
CPT/HCPCS: A9270

== ENCOUNTER 2025-06-20 00:52 | Day surgery (SDC) | payer OTHER | END 2025-06-20 23:00 | disposition home or self-care (01) | LOC: HBO 00:52 | DX: E11.621 Type 2 diabetes mellitus with foot ulcer (principal); L97.422 Non-pressure chronic ulcer of left heel and midfoot with fat layer exposed; E11.65 Type 2 diabetes mellitus with hyperglycemia; E11.42 Type 2 diabetes mellitus with diabetic polyneuropathy | CPT/HCPCS: 82947; G0277 ==

== ENCOUNTER 2025-06-21 06:11 | Day surgery (SDC) | payer OTHER | END 2025-06-21 23:00 | disposition home or self-care (01) | LOC: HBO 06:11 | DX: E11.621 Type 2 diabetes mellitus with foot ulcer (principal); L97.422 Non-pressure chronic ulcer of left heel and midfoot with fat layer exposed; E11.65 Type 2 diabetes mellitus with hyperglycemia; E11.42 Type 2 diabetes mellitus with diabetic polyneuropathy | CPT/HCPCS: 82947; G0277 ==

== ENCOUNTER 2025-06-22 01:53 | Day surgery (SDC) | payer OTHER | END 2025-06-22 23:00 | disposition home or self-care (01) | LOC: HBO 01:53 | DX: E11.621 Type 2 diabetes mellitus with foot ulcer (principal); L97.423 Non-pressure chronic ulcer of left heel and midfoot with necrosis of muscle; E11.42 Type 2 diabetes mellitus with diabetic polyneuropathy; E11.65 Type 2 diabetes mellitus with hyperglycemia | CPT/HCPCS: 82947; A6196; A9270; G0277 ==

== ENCOUNTER 2025-06-22 02:04 | Day surgery (SDC) | payer OTHER ==
[2025-06-22] MEDS ORDERED: Lidocaine HCl 4% Cream 5 GM ONE (10:03)
== END 2025-06-22 23:00 | disposition home or self-care (01) ==
LOC: WOUND 02:04
DX: E11.621 Type 2 diabetes mellitus with foot ulcer (principal); L97.423 Non-pressure chronic ulcer of left heel and midfoot with necrosis of muscle; E11.42 Type 2 diabetes mellitus with diabetic polyneuropathy; E11.65 Type 2 diabetes mellitus with hyperglycemia
CPT/HCPCS: A6196; A9270

== ENCOUNTER 2025-06-23 00:18 | Day surgery (SDC) | payer OTHER | END 2025-06-23 23:00 | disposition home or self-care (01) | LOC: HBO 00:18 | DX: E11.621 Type 2 diabetes mellitus with foot ulcer (principal); L97.423 Non-pressure chronic ulcer of left heel and midfoot with necrosis of muscle; E11.65 Type 2 diabetes mellitus with hyperglycemia; E11.42 Type 2 diabetes mellitus with diabetic polyneuropathy | CPT/HCPCS: 82947; G0277 ==

== ENCOUNTER 2025-06-26 00:22 | Day surgery (SDC) | payer OTHER | END 2025-06-26 23:37 | disposition home or self-care (01) | LOC: HBO 00:22 | DX: E11.621 Type 2 diabetes mellitus with foot ulcer (principal); L97.422 Non-pressure chronic ulcer of left heel and midfoot with fat layer exposed; E11.42 Type 2 diabetes mellitus with diabetic polyneuropathy; E11.65 Type 2 diabetes mellitus with hyperglycemia | CPT/HCPCS: 82947; G0277 ==

== ENCOUNTER 2025-06-27 00:59 | Day surgery (SDC) | payer OTHER | END 2025-06-27 23:00 | disposition home or self-care (01) | LOC: HBO 00:59 | DX: E11.621 Type 2 diabetes mellitus with foot ulcer (principal); L97.422 Non-pressure chronic ulcer of left heel and midfoot with fat layer exposed; E11.42 Type 2 diabetes mellitus with diabetic polyneuropathy; E11.65 Type 2 diabetes mellitus with hyperglycemia | CPT/HCPCS: 82947; A6213; A9270; G0277; G0463 ==

== ENCOUNTER 2025-06-27 01:06 | Day surgery (SDC) | payer OTHER ==
[2025-06-27] MEDS ORDERED: Lidocaine HCl 4% Cream 5 GM ONE (10:22)
== END 2025-06-27 23:00 | disposition home or self-care (01) ==
LOC: WOUND 01:06
DX: E11.621 Type 2 diabetes mellitus with foot ulcer (principal); L97.422 Non-pressure chronic ulcer of left heel and midfoot with fat layer exposed; E11.42 Type 2 diabetes mellitus with diabetic polyneuropathy
CPT/HCPCS: A6213; A9270; G0463

== ENCOUNTER 2025-06-29 03:33 | Day surgery (SDC) | payer OTHER | END 2025-06-29 23:18 | disposition home or self-care (01) | LOC: HBO | DX: E11.621 Type 2 diabetes mellitus with foot ulcer (principal); L97.422 Non-pressure chronic ulcer of left heel and midfoot with fat layer exposed; E11.42 Type 2 diabetes mellitus with diabetic polyneuropathy; E11.65 Type 2 diabetes mellitus with hyperglycemia | CPT/HCPCS: 82947; G0277 ==

== ENCOUNTER 2025-06-30 02:52 | Day surgery (SDC) | payer OTHER | END 2025-06-30 23:46 | disposition home or self-care (01) | LOC: HBO 02:52 | DX: E11.621 Type 2 diabetes mellitus with foot ulcer (principal); L97.422 Non-pressure chronic ulcer of left heel and midfoot with fat layer exposed; E11.42 Type 2 diabetes mellitus with diabetic polyneuropathy | CPT/HCPCS: 82947; G0277 ==

== ENCOUNTER 2025-07-04 01:05 | Day surgery (SDC) | payer OTHER ==
[2025-07-07] MEDS ORDERED: SULTRIDS PO (08:26)
== END 2025-07-04 23:00 | disposition home or self-care (01) ==
LOC: HBO 01:05
DX: E11.621 Type 2 diabetes mellitus with foot ulcer (principal); L97.422 Non-pressure chronic ulcer of left heel and midfoot with fat layer exposed; E11.42 Type 2 diabetes mellitus with diabetic polyneuropathy; E11.65 Type 2 diabetes mellitus with hyperglycemia
CPT/HCPCS: 82947; A6213; G0277; G0463

== ENCOUNTER 2025-07-04 01:13 | Day surgery (SDC) | payer OTHER ==
[2025-07-07] MEDS ORDERED: SULTRIDS PO (08:26)
== END 2025-07-04 23:00 | disposition home or self-care (01) ==
LOC: WOUND 01:13
DX: E11.621 Type 2 diabetes mellitus with foot ulcer (principal); L97.422 Non-pressure chronic ulcer of left heel and midfoot with fat layer exposed; E11.65 Type 2 diabetes mellitus with hyperglycemia; E11.42 Type 2 diabetes mellitus with diabetic polyneuropathy
CPT/HCPCS: A6213; G0463

== ENCOUNTER 2025-07-05 02:28 | Day surgery (SDC) | payer OTHER | END 2025-07-05 23:00 | disposition home or self-care (01) | LOC: HBO 02:28 | DX: E11.621 Type 2 diabetes mellitus with foot ulcer (principal); L97.422 Non-pressure chronic ulcer of left heel and midfoot with fat layer exposed; E11.65 Type 2 diabetes mellitus with hyperglycemia; E11.42 Type 2 diabetes mellitus with diabetic polyneuropathy | CPT/HCPCS: 82947; G0277 ==

== ENCOUNTER 2025-07-06 00:50 | Day surgery (SDC) | payer OTHER ==
[2025-07-07] MEDS ORDERED: SULTRIDS PO (08:26)
== END 2025-07-06 23:00 | disposition home or self-care (01) ==
LOC: HBO 00:50
DX: E11.621 Type 2 diabetes mellitus with foot ulcer (principal); L97.422 Non-pressure chronic ulcer of left heel and midfoot with fat layer exposed; E11.65 Type 2 diabetes mellitus with hyperglycemia; E11.42 Type 2 diabetes mellitus with diabetic polyneuropathy
CPT/HCPCS: 82947; G0277

== ENCOUNTER → 2025-07-07 | Emergency (ER) | payer OTHER ==
[~2025-07-07] VITALS: Ht 165.1 cm; Wt 68.0 kg
[~2025-07-07] MED LIST changes: +SULTRIDS PO; +Trimethoprim/Sulfamethoxazole DS Tab PO ONE
== END ==
LOC: ER 07:17
DX: L02.411 Cutaneous abscess of right axilla (principal); L03.113 Cellulitis of right upper limb; E11.9 Type 2 diabetes mellitus without complications; Z79.4 Long term (current) use of insulin; Z79.899 Other long term (current) drug therapy
CPT/HCPCS: 99283; A9270

== ENCOUNTER 2025-07-11 02:28 | Day surgery (SDC) | payer OTHER ==
[~2025-07-11 02:28] MED LIST changes: -Trimethoprim/Sulfamethoxazole DS Tab PO ONE
== END 2025-07-11 23:01 | disposition home or self-care (01) ==
LOC: HBO 02:28
DX: E11.621 Type 2 diabetes mellitus with foot ulcer (principal); L97.422 Non-pressure chronic ulcer of left heel and midfoot with fat layer exposed; E11.42 Type 2 diabetes mellitus with diabetic polyneuropathy; E11.65 Type 2 diabetes mellitus with hyperglycemia
CPT/HCPCS: 82947; G0277

== ENCOUNTER 2025-07-12 01:48 | Day surgery (SDC) | payer OTHER | END 2025-07-12 23:00 | disposition home or self-care (01) | LOC: HBO 01:48 | DX: E11.621 Type 2 diabetes mellitus with foot ulcer (principal); L97.422 Non-pressure chronic ulcer of left heel and midfoot with fat layer exposed; E11.42 Type 2 diabetes mellitus with diabetic polyneuropathy | CPT/HCPCS: 82947; G0277 ==

== ENCOUNTER 2025-07-12 03:11 | Day surgery (SDC) | payer OTHER ==
[2025-07-12] MEDS ORDERED: Lidocaine HCl 4% Cream 5 GM ONE (10:18)
== END 2025-07-12 23:00 | disposition home or self-care (01) ==
LOC: WOUND 03:11
DX: E11.621 Type 2 diabetes mellitus with foot ulcer (principal); L97.425 Non-pressure chronic ulcer of left heel and midfoot with muscle involvement without evidence of necrosis; E11.42 Type 2 diabetes mellitus with diabetic polyneuropathy; E11.65 Type 2 diabetes mellitus with hyperglycemia
CPT/HCPCS: A6213; A9270

== ENCOUNTER 2025-07-17 02:51 | Day surgery (SDC) | payer OTHER | END 2025-07-17 23:00 | disposition home or self-care (01) | LOC: HBO 02:51 | DX: E11.621 Type 2 diabetes mellitus with foot ulcer (principal); L97.422 Non-pressure chronic ulcer of left heel and midfoot with fat layer exposed; E11.42 Type 2 diabetes mellitus with diabetic polyneuropathy; E11.65 Type 2 diabetes mellitus with hyperglycemia | CPT/HCPCS: 82947; G0277 ==

== ENCOUNTER 2025-07-18 02:29 | Day surgery (SDC) | payer OTHER ==
[2025-07-18] MEDS ORDERED: Lidocaine HCl 4% Cream 5 GM ONE (10:19)
== END 2025-07-18 23:00 | disposition home or self-care (01) ==
LOC: WOUND 02:29
DX: E11.621 Type 2 diabetes mellitus with foot ulcer (principal); L97.422 Non-pressure chronic ulcer of left heel and midfoot with fat layer exposed; E11.42 Type 2 diabetes mellitus with diabetic polyneuropathy; E11.65 Type 2 diabetes mellitus with hyperglycemia
CPT/HCPCS: A6213; A9270

== ENCOUNTER 2025-07-18 02:35 | Day surgery (SDC) | payer OTHER | END 2025-07-18 23:00 | disposition home or self-care (01) | LOC: HBO 02:35 | DX: E11.621 Type 2 diabetes mellitus with foot ulcer (principal); L97.422 Non-pressure chronic ulcer of left heel and midfoot with fat layer exposed; E11.42 Type 2 diabetes mellitus with diabetic polyneuropathy; E11.65 Type 2 diabetes mellitus with hyperglycemia | CPT/HCPCS: 82947; A6213; A9270; G0277 ==

== ENCOUNTER 2025-07-25 02:34 | Day surgery (SDC) | payer OTHER ==
[2025-07-25] MEDS ORDERED: Lidocaine HCl 4% Cream 5 GM ONE (09:38)
== END 2025-07-25 23:00 | disposition home or self-care (01) ==
LOC: WOUND 02:34
DX: E11.621 Type 2 diabetes mellitus with foot ulcer (principal); L97.422 Non-pressure chronic ulcer of left heel and midfoot with fat layer exposed; E11.65 Type 2 diabetes mellitus with hyperglycemia; E11.42 Type 2 diabetes mellitus with diabetic polyneuropathy
CPT/HCPCS: A6213; A9270

== ENCOUNTER 2025-08-01 02:36 | Day surgery (SDC) | payer OTHER ==
[2025-08-01] MEDS ORDERED: Lidocaine HCl 4% Cream 5 GM ONE (08:31)
== END 2025-08-01 22:00 | disposition home or self-care (01) ==
LOC: WOUND 02:36
DX: E11.621 Type 2 diabetes mellitus with foot ulcer (principal); L97.422 Non-pressure chronic ulcer of left heel and midfoot with fat layer exposed; E11.42 Type 2 diabetes mellitus with diabetic polyneuropathy; E11.65 Type 2 diabetes mellitus with hyperglycemia
CPT/HCPCS: A6213; A9270

== ENCOUNTER 2025-08-22 08:14 | Day surgery (SDC) | payer OTHER ==
[2025-08-22] MEDS ORDERED: Lidocaine HCl 4% Cream 5 GM ONE (08:41)
== END 2025-08-22 23:00 | disposition home or self-care (01) ==
LOC: WOUND 08:14
DX: E11.621 Type 2 diabetes mellitus with foot ulcer (principal); L97.422 Non-pressure chronic ulcer of left heel and midfoot with fat layer exposed; E11.42 Type 2 diabetes mellitus with diabetic polyneuropathy
CPT/HCPCS: A6213; A9270

== ENCOUNTER 2025-08-29 01:22 | Day surgery (SDC) | payer OTHER ==
[2025-08-29] MEDS ORDERED: Lidocaine HCl 4% Cream 5 GM ONE (10:11)
== END 2025-08-29 22:55 | disposition home or self-care (01) ==
LOC: WOUND 01:22
DX: E11.621 Type 2 diabetes mellitus with foot ulcer (principal); L97.422 Non-pressure chronic ulcer of left heel and midfoot with fat layer exposed; L97.512 Non-pressure chronic ulcer of other part of right foot with fat layer exposed; E11.42 Type 2 diabetes mellitus with diabetic polyneuropathy
CPT/HCPCS: 73630; A6213; A9270; G0463

== ENCOUNTER 2025-09-12 00:37 | Day surgery (SDC) | payer OTHER ==
[2025-09-12] MEDS ORDERED: Lidocaine HCl 4% Cream 5 GM ONE (08:33)
== END 2025-09-12 22:55 | disposition home or self-care (01) ==
LOC: WOUND 00:37
DX: E11.621 Type 2 diabetes mellitus with foot ulcer (principal); L97.513 Non-pressure chronic ulcer of other part of right foot with necrosis of muscle; L97.422 Non-pressure chronic ulcer of left heel and midfoot with fat layer exposed; E11.42 Type 2 diabetes mellitus with diabetic polyneuropathy; E11.65 Type 2 diabetes mellitus with hyperglycemia
CPT/HCPCS: A6213; A9270

== ENCOUNTER 2025-10-31 07:34 | Day surgery (SDC) | payer OTHER | END 2025-10-31 23:00 | disposition home or self-care (01) | LOC: WOUND 07:34 | DX: E11.621 Type 2 diabetes mellitus with foot ulcer (principal); L97.421 Non-pressure chronic ulcer of left heel and midfoot limited to breakdown of skin; L97.511 Non-pressure chronic ulcer of other part of right foot limited to breakdown of skin; E11.42 Type 2 diabetes mellitus with diabetic polyneuropathy; E11.65 Type 2 diabetes mellitus with hyperglycemia | CPT/HCPCS: G0463 ==